=== PATIENT | female | born 1975 | race Caucasian/White ===

== ENCOUNTER → 2017-09-23 | Outpatient (CLI) | payer OTHER ==
[~2017-09-23] MED LIST: HYDR1TAB94 PO; Imitrex100 MG PO; MULVITMINE; Maxalt10 MG; TRAM50 PO
== END | disposition home or self-care (01) ==
LOC: LAB SHORT 08:44 → PLD 08:44
DX: L82.1 Other seborrheic keratosis (principal)
CPT/HCPCS: 88305

== ENCOUNTER → 2022-07-09 | Outpatient (CLI) | payer OTHER | END | disposition home or self-care (01) | LOC: LAB 15:54 → LAB SHORT 15:54 | DX: L82.1 Other seborrheic keratosis (principal) | CPT/HCPCS: 88305 ==